=== PATIENT | female | born 1945 | race Two or more races ===

== ENCOUNTER 2018-11-22 08:21 | Outpatient (CLI) | payer OTHER | END 2018-11-22 08:30 | disposition home or self-care (01) | LOC: SONOGRAMA 08:21 → MAMO-SONO 08:45 | DX: K21.0 Gastro-esophageal reflux disease with esophagitis (principal) ==

== ENCOUNTER 2025-01-04 07:27 | Outpatient (CLI) | payer OTHER | END 2025-01-04 07:28 | disposition home or self-care (01) | LOC: NUCLEAR 07:27 | DX: C06.9 Malignant neoplasm of mouth, unspecified (principal); K13.70 Unspecified lesions of oral mucosa | CPT/HCPCS: 78815; A9552 ==

== ENCOUNTER 2025-03-05 08:57 | Outpatient (CLI) | payer OTHER | END 2025-03-05 09:18 | disposition home or self-care (01) | LOC: MRI 08:57 | DX: C06.0 Malignant neoplasm of cheek mucosa (principal); R22.0 Localized swelling, mass and lump, head | CPT/HCPCS: 70542; Q9965 ==